=== PATIENT | female | born 1985 | race Two or more races ===

== ENCOUNTER 2021-05-04 23:34 | Emergency (ER) | payer SELFPAY ==
[~2021-05-04] VITALS: Ht 152.4 cm; Wt 77.3 kg
[2021-05-05] MEDS ORDERED: MORPHINE SULFATE 4 MG/ML INJ. IVP ONE (00:15)
[2021-05-05] MEDS ORDERED: KETOROLAC 30 MG/ML VIAL. IVP ONE (00:15)
[2021-05-05] MEDS ORDERED: ONDANSETRON PF 4 MG/2 ML VIAL. IVP ONE (00:15)
[2021-05-05] MEDS ORDERED: IV RINGERS,LACTATED 1000ML 1,000 ML IV ONE (00:15)
[2021-05-05 00:47] LABS: BASO # 0.1 x10^3/uL (0.0-0.2); BASO % 1 % (0-3); EOS # 0.1 x10^3/uL (0.0-0.7); EOS % 1 % (0-3); HEMATOCRIT 42.1 % (36.0-47.0); HEMOGLOBIN 14.4 g/dL (12.0-15.5); LYMPH # 2.7 x10^3/uL (1.0-4.8); LYMPH % 17 % (24-48); MEAN CORPUSCULAR HEMOGLOBIN 30 pg (25-35); MEAN CORPUSCULAR HGB CONC 34 g/dL (31-37); MEAN CORPUSCULAR VOLUME 87 fL (79-100); MONO # 1.4 x10^3/uL (0.0-1.1); MONO % 9 % (0-9); NEUT # 11.6 x10^3/uL (1.8-7.7); NEUT % 73 % (31-73); PLATELET COUNT 348 x10^3/uL (140-400); RED BLOOD COUNT 4.85 x10^6/uL (3.50-5.40); RED CELL DISTRIBUTION WIDTH 12.9 % (11.5-14.5); WHITE BLOOD COUNT 15.9 x10^3/uL (4.0-11.0)
[2021-05-05 00:54] LABS: CALCIUM 8.7 mg/dL (8.5-10.1); CREATININE 0.7 mg/dL (0.6-1.0); GFR 94.2
[2021-05-05 01:00] LABS: ALBUMIN 3.5 g/dL (3.4-5.0); ALBUMIN/GLOBULIN RATIO 0.8 (1.0-1.7); TOTAL BILIRUBIN 0.6 mg/dL (0.2-1.0); TOTAL PROTEIN 7.8 g/dL (6.4-8.2)
[2021-05-05] MEDS ORDERED: FAMOTIDINE 20 MG/2 ML VIAL IVP ONE (02:00)
[2021-05-05] MEDS ORDERED: LIDO:MAALOX 1:1 20 ML SINGLE DOSE. SWSW ONE (02:00)
--- NOTE | 2021-05-05 02:12 | RAD ---
Right upper quadrant abdominal ultrasound History: Reason: RUQ and epigastric pain; Comparison: None. Technique: Transabdominal ultrasound images are obtained. Findings: The liver is normal in echotexture. The liver measures 15.2 cm. Ultrasound is not sensitive for detec ting solid liver lesions. Portal flow is hepatopetal. The common bile duct diameter measures 3 mm. The gallbladder wall measures 3 mm. Gallbladder is distended. Per report, sonographic Freed sign is negative. There is no cholelithiasis or pericholecystic fluid. The pancreas is obscured due to overlying bowel gas. The right kidney is normal in echotexture and measures 10.3 cm. Corticomedullary differentiation is preserved. There is no hydronephrosis. Visualized portions of the abdominal aorta and IVC are normal. IMPRESSION: Gallbladder is distended, otherwise normal. Electronically signed by: Ulisses Daley MD (05/05/2021 2:09 AM) [facility]
[2021-05-05 02:32] LABS: BILIRUBIN,URINE NEGATIVE (NEG); CLARITY,URINE CLEAR; COLOR,URINE YELLOW; NITRITE,URINE NEGATIVE (NEG); PH,URINE 7.5 (<5.0-8.0); PROTEIN,URINE NEGATIVE (NEG-TRACE)
[2021-05-05 02:40] LABS: BACTERIA,URINE MANY /HPF (0-FEW); RBC,URINE 0 /HPF (0-2)
[2021-05-05] MEDS ORDERED: cefTRIAXone IV Push 1 GM VIAL. IVP ONE (03:30)
[2021-05-05 04:18] VITALS: BP 120/73
[2021-05-05] MEDS ORDERED: ACET500T68 PO (04:26)
[2021-05-05] MEDS ORDERED: FAMO-63 PO (04:26)
[2021-05-05] MEDS ORDERED: CEFD300C PO (04:26)
--- NOTE | 2021-05-05 04:27 | PHYS DOC ---
Past Medical History Past Surgical History: Other Additional Past Surgical Histo: "SURGERY TO NOT HAVE BABIES" Smoking Status: Never Smoker Alcohol Use: Rarely Adult General Chief Complaint Chief Complaint: ABDOMINAL PAIN HPI HPI The patient is a 36-year-old female who presents for evaluation of epigastric and right upper quadrant abdominal discomfort, sharp, focal and constant, with onset a couple of hours prior to arrival after the patient ate some chocolate ice cream. She reports one prior episode of similar symptoms a couple of years ago and states she was told at that time that it was a problem with her gall bladder. Discomfort is 8 out of 10 in severity and nothing seems to make it better or worse. It does not otherwise radiate. It is reproducible with palpation of the epigastrium. Associated nausea with one episode of nonbloody vomiting. No associated fevers, hematemesis, hematochezia or melena, upper respiratory congestion/rhinorrhea, cough, sore throat, shortness of breath or chest pain of any kind, lower abdominal pain of any kind, flank pain, midline back pain, dysuria, hematuria, polyuria or oliguria, changes in bowel habits. Patient is alert and pleasantly and appropriately interactive and in absolutely no acute distress with appropriate vital signs upon initial evaluation here in the emergency department. Patient is [place]-speaking and fluent telephonic interpretation used to gather history and complete exam. Review of Systems Review of Systems A 12 point review of systems was completed and was negative except where noted in HPI above. Current Medications Current Medications Current Medications Medications (Trade) Dose Ordered Sig/Julien Start Time Stop Time Status Last Admin Dose Admin Ceftriaxone Sodium (Rocephin) 1 gm 1X ONCE 05/05/21 03:30 05/05/21 03:31 DC Famotidine (Pepcid Vial) 20 mg 1X ONCE 05/05/21 02:00 05/05/21 02:01 DC 05/05/21 02:03 20 MG Ketorolac Tromethamine (Toradol 30mg Vial) 15 mg 1X ONCE 05/05/21 00:15 05/05/21 00:18 DC 05/05/21 00:36 15 MG Morphine Sulfate (Morphine Sulfate) 4 mg 1X ONCE 05/05/21 00:15 05/05/21 00:18 DC 05/05/21 00:37 4 MG Multi-Ingredient Mouthwash/Gargle (Gi Cocktail) 20 ml 1X ONCE 05/05/21 02:00 05/05/21 02:01 DC 05/05/21 02:03 20 ML Ondansetron HCl (Zofran) 4 mg 1X ONCE 05/05/21 00:15 05/05/21 00:18 DC 05/05/21 00:35 4 MG Ringer's Solution 1,000 ml @ 999 mls/hr 1X ONCE 05/05/21 00:15 05/05/21 01:15 DC 05/05/21 00:38 999 MLS/HR Allergies Allergies Allergies Coded Allergies Type Severity Reaction Last Updated Verified No Known Drug Allergies 05/04/21 No Physical Exam Physical Exam 36-year-old female appearing nontoxic and in no acute distress. Head is normoce phalic and atraumatic. Neck is supple and nontender. Oropharynx is moist. Lungs are clear to auscultation at all stations. There is a normal S1 and S2 without rubs or gallops and capillary refill is appropriate, less than 2 seconds globally. Abdomen is soft and nondistended with mild focal epigastric and right upper quadrant tenderness to palpation without rebound or guarding. No lower quadrant tenderness to palpation.. Skin is warm and dry without cyanosis, clubbing or edema. Psychiatrically, the patient demonstrates appropriate mood and affect and is alert Current Patient Data Vital Signs Vital Signs Date Time Temp Pulse Resp B/P (MAP) Pulse Ox O2 Delivery O2 Flow Rate FiO2 05/05/21 00:37 18 98 Room Air 05/04/21 23:46 99.9 114 138/75 (96) 99.9 Lab Values Laboratory Tests Test 05/05/21 00:33 05/05/21 02:00 05/05/21 02:13 White Blood Count 15.9 x10^3/uL (4.0-11.0) H Red Blood Count 4.85 x10^6/uL (3.50-5.40) Hemoglobin 14.4 g/dL (12.0-15.5) Hematocrit 42.1 % (36.0-47.0) Mean Corpuscular Volume 87 fL (79-100) Mean Corpuscular Hemoglobin 30 pg (25-35) Mean Corpuscular Hemoglobin Concent 34 g/dL (31-37) Red Cell Distribution Width 12.9 % (11.5-14.5) Platelet Count 348 x10^3/uL (140-400) Neutrophils (%) (Auto) 73 % (31-73) Lymphocytes (%) (Auto) 17 % (24-48) L Monocytes (%) (Auto) 9 % (0-9) Eosinophils (%) (Auto) 1 % (0-3) Basophils (%) (Auto) 1 % (0-3) Neutrophils # (Auto) 11.6 x10^3/uL (1.8-7.7) H Lymphocytes # (Auto) 2.7 x10^3/uL (1.0-4.8) Monocytes # (Auto) 1.4 x10^3/uL (0.0-1.1) H Eosinophils # (Auto) 0.1 x10^3/uL (0.0-0.7) Basophils # (Auto) 0.1 x10^3/uL (0.0-0.2) Sodium Level 142 mmol/L (136-145) Potassium Level 4.0 mmol/L (3.5-5.1) Chloride Level 104 mmol/L (98-107) Carbon Dioxide Level 26 mmol/L (21-32) Anion Gap 12 (6-14) Blood Urea Nitrogen 12 mg/dL (7-20) Creatinine 0.7 mg/dL (0.6-1.0) Estimated GFR (Cockcroft-Gault) 94.2 BUN/Creatinine Ratio 17 (6-20) Glucose Level 127 mg/dL (70-99) H Calcium Level 8.7 mg/dL (8.5-10.1) Total Bilirubin 0.6 mg/dL (0.2-1.0) Aspartate Amino Transferase (AST) 169 U/L (15-37) H Alanine Aminotransferase (ALT) 162 U/L (14-59) H Alkaline Phosphatase 56 U/L (46-116) Total Protein 7.8 g/dL (6.4-8.2) Albumin 3.5 g/dL (3.4-5.0) Albumin/Globulin Ratio 0.8 (1.0-1.7) L Lipase 80 U/L (73-393) Urine Collection Type Unknown Urine Color Yellow Urine Clarity Clear Urine pH 7.5 (<5.0-8.0) Urine Specific Jadwin <=1.005 (1.000-1.030) Urine Protein Negative mg/dL (NEG-TRACE) Urine Glucose (UA) Negative mg/dL (NEG) Urine Ketones (Stick) Negative mg/dL (NEG) Urine Blood Negative (NEG) Urine Nitrite Negative (NEG) Urine Bilirubin Negative (NEG) Urine Urobilinogen Dipstick 1.0 mg/dL (0.2 mg/dL) Urine Leukocyte Esterase Moderate (NEG) Urine RBC 0 /HPF (0-2) Urine WBC 11-20 /HPF (0-4) Urine Squamous Epithelial Cells Mod /LPF Urine Bacteria Many /HPF (0-FEW) Urine Mucus Slight /LPF POC Urine HCG, Qualitative Hcg negative (Negative) Laboratory Tests 05/05/21 00:33 Laboratory Tests 05/05/21 00:33 EKG EKG [] Radiology/Procedures Radiology/Procedures Right upper quadrant abdominal ultrasound History: Reason: RUQ and epigastric pain; Comparison: None. Technique: Transabdominal ultrasound images are obtained. Findings: The liver is normal in echotexture. The liver measures 15.2 cm. Ultrasound is not sensitive for detecting solid liver lesions. Portal flow is hepatopetal. The common bile duct diameter measures 3 mm. The gallbladder wall measures 3 mm. Gallbladder is distended. Per report, sonographic Freed sign is negative. There is no cholelithiasis or pericholecystic fluid. The pancreas is obscured due to overlying bowel gas. The right kidney is normal in echotexture and measures 10.3 cm. Corticomedullary differentiation is preserved. There is no hydronephrosis. Visualized portions of the abdominal aorta and IVC are normal. IMPRESSION: Gallbladder is distended, otherwise normal. Electronically signed by: Ulisses Daley MD (05/05/2021 2:09 AM) [facility] DICTATED and SIGNED BY: ULISSES DALEY MD DATE: 05/05/21 [id number] 0 Course & Med Decision Making Course & Med Decision Making 36-year-old female here for evaluation of epigastric and right upper quadrant abdominal pain with onset a couple of hours prior to arrival. Labs remarkable for mild transaminase elevations of uncertain chronicity; no evidence of cholestasis. Urinalysis with evidence of infection. Patient does have a leukocytosis as well which is probably related to her UTI. Right upper quadrant ultrasound without evidence of cholecystitis or cholelithiasis or other acute process. On serial reassessments patient is feeling much, much better. Presenting discomfort is completely resolved. In view of resolution of symptoms in this well-appearing younger female, and in view of reassuring work-up, will discharge home with cefdinir for UTI and empiric Pepcid and Tylenol. Will refer to primary care for close follow-up in the office in the next couple of days. Patient understands that if she feels worse instead of better or develops other new symptoms of concern that she should return to the emergency department immediately for reevaluation. All questions are answered. Dragon Disclaimer Dragon Disclaimer This electronic medical record was generated, in whole or in part, using a voice recognition dictation system. Departure Departure Impression: Primary Impression: Acute cystitis without hematuria Additional Impressions: Transaminasemia Acute epigastric pain Disposition: HOME / SELF CARE / HOMELESS Condition: IMPROVED Referrals: SHAHID AGUIAR MD Patient Instructions: Abdominal Pain (Nonspecific), Urinary Tract Infection Additional Instructions: Follow-up very closely with Dr. Aguiar in the office in the next 2 to 4 days for a reevaluation of your symptoms and a discussion of next best steps in care. Call him at the telephone number provided on Thursday to make an appointment to be seen and let him know you were in the emergency room over the weekend. Drink plenty of fluids and get plenty of rest. For your urinary tract infection take a cefdinir pill twice a day for the next 5 days until the antibiotic is gone. Begin taking the Pepcid antiacid medication twice a day to reduce stomach acid. For pain you may take a 500 mg extra strength Tylenol pill every 6 hours as needed. Return to the emergency department right away for worsening symptoms of any kind or with any other new symptoms of concern. Your liver enzyme tests were a little bit abnormal today. This is likely nothing to be concerned about but I would like you to have your liver enzymes rechecked by your primary doctor at your upcoming appointment to make sure that they are the same or better than they are today. Scripts Acetaminophen (ACETAMINOPHEN) 500 Mg Tablet 1 TAB PO PRN Q6HRS PRN for pain or fever, #50 TAB 0 Refills Prov: SONJA GODWIN MD 05/05/21 Famotidine (PEPCID) 20 Mg Tablet 20 MG PO BID, #30 TAB Prov: SONJA GODWIN MD 05/05/21 Cefdinir (CEFDINIR) 300 Mg Capsule 1 CAP PO BID for 5 Days, #10 CAP Prov: SONJA GODWIN MD 05/05/21 Problem Qualifiers SONJA GODWIN MD May 05, 2021 04:27
== END 2021-05-05 04:34 | disposition home or self-care (01) ==
LOC: ER 23:34
DX: N30.00 Acute cystitis without hematuria (principal); R74.01 Elevation of levels of liver transaminase levels
CPT/HCPCS: 36415; 76705; 80053; 81001; 81025; 83690; 85025; 87077; 87086; 87147; 87186; 96361; 96374; 96375; 99285; J0696; J1885; J2270; J2405; J3490; J7120